=== PATIENT | female | born 1980 | race Caucasian/White ===

== ENCOUNTER 2020-03-28 16:09 | Emergency (ER) | payer BC | END 2020-03-28 18:10 | disposition left against medical advice (07) | LOC: SED 16:09 | DX: R07.9 Chest pain, unspecified (principal); Z53.21 Procedure and treatment not carried out due to patient leaving prior to being seen by health care provider ==

== ENCOUNTER 2021-03-24 13:21 | Emergency (ER) | payer BC ==
[~2021-03-24] VITALS: Ht 182.9 cm; Wt 104.3 kg
[2021-03-24 13:45] VITALS: BP_SYST 147
[2021-03-24] MEDS ORDERED: HYDR-3917 PO (15:15)
[2021-03-24 15:29] VITALS: BP_SYST 131
== END 2021-03-24 15:28 | disposition home or self-care (01) ==
LOC: SED 13:21
DX: M79.662 Pain in left lower leg (principal)
CPT/HCPCS: 93971; 99284